=== PATIENT | female | born 2000 | race Caucasian/White ===

== ENCOUNTER 2021-04-17 17:57 | Emergency (ER) | payer OTHER ==
[2021-04-17] MEDS ORDERED: PRENATAL FORMU1 EACH PO (19:30)
== END 2021-04-17 19:44 | disposition home or self-care (01) ==
LOC: FER 17:57
DX: O99.891 Other specified diseases and conditions complicating pregnancy (principal); R10.9 Unspecified abdominal pain; Z3A.00 Weeks of gestation of pregnancy not specified
CPT/HCPCS: 36415; 84702; 99284

== ENCOUNTER 2021-09-20 12:13 | Emergency (ER) | payer OTHER ==
[~2021-09-20 12:13] MED LIST: PRENATAL FORMU1 EACH PO
[2021-09-20 13:45] LABS: BASOPHIL 0.8 % (0-2); EOSINOPHIL 0.5 % (0-5); HCT 40.6 % (37.0-47.0); HGB 13.6 g/dl (12.5-16.0); LYMPHOCYTE 16.9 % (15-48); MCH 30.1 pg (25.0-31.0); MCHC 33.5 g/dL (32.0-36.0); MCV 89.8 fL (78.0-100.0); MONOCYTE 7.8 % (0-12); MPV 9.9 fL (6.0-9.5); NEUTROPHIL 73.6 % (41-80); NRBC 0; PLT 339 K/uL (150-400); RBC 4.52 M/uL (4.20-5.40); RDW 12.4 % (11.5-14.0); WBC 12.5 K/uL (4.0-10.5)
[2021-09-20 13:46] LABS: BILIRUBIN NEGATIVE (NEGATIVE); BLOOD 2+ Ery/uL (NEGATIVE); CLARITY CLEAR (CLEAR); COLOR YELLOW (YELLOW); GLUCOSE (U) NORMAL (NORMAL); LEUKOCYTES NEGATIVE Leu/uL (NEGATIVE); NITRITE NEGATIVE (NEGATIVE); PROTEIN NEGATIVE (NEGATIVE); SPECIFIC GRAVITY 1.015 (1.001-1.030); UROBILINOGEN 0.2 mg/dL (0.2-1.0)
[2021-09-20 14:15] LABS: ALBUMIN 3.7 g/dL (3.4-5.0); BILIRUBIN - TOTAL 0.4 mg/dL (0.2-1.0); BUN/CREAT RATIO (CALC) 19.3 RATIO; CREATININE 0.57 mg/dL (0.51-0.95); GLOBULIN (CALCULATION) 3.6 g/dL; POTASSIUM 3.7 mmol/L (3.5-5.1); TOTAL PROTEIN 7.3 g/dL (6.4-8.2)
[2021-09-20 14:32] LABS: BACTERIA TRACE
== END 2021-09-20 16:55 | disposition home or self-care (01) ==
LOC: FER 12:13
PROVIDERS: Physician Assistant
DX: O36.4XX0 Maternal care for intrauterine death, not applicable or unspecified (principal); Z3A.01 Less than 8 weeks gestation of pregnancy
CPT/HCPCS: 36415; 76817; 80053; 81001; 84702; 85025; 86900; 86901

== ENCOUNTER → 2021-09-26 | Day surgery (SDC) | payer OTHER ==
[~2021-09-26] VITALS: Ht 167.6 cm; Wt 108.9 kg
[~2021-09-26] MED LIST changes: +PROZAC20 MG PO
[2021-09-26 11:56] LABS: HCT 38.5 % (37.0-47.0); HGB 12.9 g/dl (12.5-16.0); MCH 29.7 pg (25.0-31.0); MCHC 33.5 g/dL (32.0-36.0); MCV 88.5 fL (78.0-100.0); RBC 4.35 M/uL (4.20-5.40); RDW 12.3 % (11.5-14.0); WBC 10.9 K/uL (4.0-10.5)
== END | disposition home or self-care (01) ==
LOC: FAS 10:44
PROVIDERS: Obstetrics & Gynecology
DX: O02.1 Missed abortion (principal); F32.A Depression, unspecified; F41.9 Anxiety disorder, unspecified; J45.909 Unspecified asthma, uncomplicated; Z79.899 Other long term (current) drug therapy; Z20.822 Contact with and (suspected) exposure to COVID-19
CPT/HCPCS: 36415; 86850; 86900; 86901; J1100; J1885; J2250; J2405; J2704; J3010; J7050; U0002